=== PATIENT | female | born 1940 | race Caucasian/White ===

== ENCOUNTER 2017-07-18 12:37 | Emergency (ER) | payer MEDICARE ==
[2017-07-18 13:11] LABS: BASOPHILS 0.3 % (0-2); EOSINOPHILS 0.9 % (0-7); HEMATOCRIT 33.5 % (36.0-48.0); HEMOGLOBIN 10.6 g/dL (12-16); IMMATURE GRANULOCYTES 0.1 % (0-5); LYMPHOCYTES 11.3 % (15-50); MCH 29.9 pg (26.0-34.0); MCHC 31.6 g/dL (31.0-37.0); MCV 94.6 fL (80.0-100.0); MEAN PLATELET VOLUME 9.4 fL (7.4-10.4); MONOCYTES 7.8 % (2-11); NEUTROPHILS 79.6 % (40-80); PLATELET COUNT 264 10x3/uL (130-400); RBC 3.54 10x6/uL (4.00-5.40); RDW 13.4 % (11.5-14.5); WBC 6.7 10x3/uL (4.8-10.8)
[2017-07-18 13:19] LABS: ALBUMIN 3.2 g/dL (3.4-5.0); ANION GAP 12.5 mmol/L (8-16); BILIRUBIN - TOTAL 0.27 mg/dL (0.2-1.3); CARBON DIOXIDE 24.2 mmol/L (21.0-32.0); CREATININE - SERUM 0.8 mg/dL (0.6-1.3); POTASSIUM - SERUM 3.7 mmol/L (3.5-5.1); PROTEIN - SERUM 6.2 g/dL (6.4-8.2)
[2017-07-18 17:26] LABS: APPEARANCE HAZY (CLEAR); BILIRUBIN NEGATIVE (NEGATIVE); COLOR YELLOW (YELLOW); GLUCOSE 250 mg/dL (NEGATIVE); KETONE NEGATIVE (NEGATIVE); NITRITE NEGATIVE (NEGATIVE); PROTEIN NEGATIVE (NEGATIVE); SPECIFIC GRAVITY 1.015 (1.005-1.020); UROBILINOGEN NORMAL (NORMAL)
== END 2017-07-18 17:45 | disposition home or self-care (01) ==
LOC: D.ER 12:37
PROVIDERS: Emergency Medicine
DX: R55 Syncope and collapse (principal); E11.65 Type 2 diabetes mellitus with hyperglycemia; I44.0 Atrioventricular block, first degree

== ENCOUNTER 2018-08-03 01:23 | Inpatient (IN) | payer MEDICARE ==
[~2018-08-03] VITALS: Ht 152.4 cm; Wt 46.3 kg
[2018-08-03] MEDS ORDERED: RISPERDAL1 MG PO (01:35)
[2018-08-03] MEDS ORDERED: GLUCOPHAGE500 MG PO (01:35)
[2018-08-03] MEDS ORDERED: PRAVACHOL40 MG PO (01:35)
[2018-08-03] MEDS ORDERED: ZOLOFT50 MG PO (01:35)
[2018-08-03] MEDS ORDERED: ATIVAN2 MG PO (01:35)
[2018-08-03 01:57] LABS: BASOPHILS 0.1 % (0-2); EOSINOPHILS 0.1 % (0-7); HEMOGLOBIN 11.5 g/dL (12-16); IMMATURE GRANULOCYTES 0.2 % (0-5); LYMPHOCYTES 4.4 % (15-50); MCH 31.1 pg (26.0-34.0); MCHC 33.8 g/dL (31.0-37.0); MCV 91.9 fL (80.0-100.0); MEAN PLATELET VOLUME 10.4 fL (7.4-10.4); MONOCYTES 7.6 % (2-11); NEUTROPHILS 87.6 % (40-80); PLATELET COUNT 241 10x3/uL (130-400); RDW 13.4 % (11.5-14.5); WBC 14.8 10x3/uL (4.8-10.8)
[2018-08-03 02:10] LABS: APPEARANCE CLOUDY (CLEAR); BILIRUBIN NEGATIVE (NEGATIVE); COLOR YELLOW (YELLOW); GLUCOSE NEGATIVE (NEGATIVE); KETONE NEGATIVE (NEGATIVE); NITRITE POSITIVE (NEGATIVE); PROTEIN 3+ mg/dL (NEGATIVE); UROBILINOGEN NORMAL (NORMAL)
[2018-08-03 02:11] LABS: BACTERIA MANY /hpf (NONE SEEN); EPITHELIAL CELLS 0-5 /hpf (0-5); RED CELLS - URINE 0-5 /hpf (0-5)
[2018-08-03 02:21] LABS: ALBUMIN 3.4 g/dL (3.4-5.0); ALKALINE PHOSPHATASE 80 U/L (46-116); ALT (SGPT) 15 U/L (10-68); BILIRUBIN - TOTAL 0.48 mg/dL (0.2-1.3); CALC OSMOLALITY 280 mosm/kg (275-300); CALCIUM 8.5 mg/dL (8.5-10.1); CARBON DIOXIDE 22.2 mmol/L (21.0-32.0); CHLORIDE - SERUM 104 mmol/L (98-107); CREATININE - SERUM 0.9 mg/dL (0.6-1.3); GLUCOSE 145 mg/dL (74-106); POTASSIUM - SERUM 3.8 mmol/L (3.5-5.1); PROTEIN - SERUM 6.8 g/dL (6.4-8.2); SODIUM 138 mmol/L (136-145); UREA NITROGEN 17 mg/dL (7-18); eGFR NON AFRICAN AMERICAN 64 mL/min (90-120)
[2018-08-03 02:24] LABS: CKMB 0.6 U/L (0.0-3.6); CREATINE KINASE 46 UL (21-215); TROPONIN-I < 0.017 ng/mL (0.000-0.060)
[2018-08-03 04:00] VITALS: BP 92/46
--- NOTE | 2018-08-03 04:05 | NUR ---
CALLED FOR HEART MONITOR
[2018-08-03] MEDS ORDERED: LOMOTIL 2.5-0.1 EAC1 PO (04:35)
[2018-08-03 04:36] VITALS: BP 80/37; BMI 19.9
--- NOTE | 2018-08-03 05:05 | NUR ---
RECIEVED TO ROOM VIA ED AROUSES EASILY DENIES PAIN IV NS STARTED AT 125CC/HR LEFT AC, DAVID MAT IN PLACE DUE TO REPORTED PEROIDS OF CONFUSION AND FREQUENT FALLS AT HOME PRIOR TO ARRIVAL, CALL LIGHT IN REACH
--- NOTE | 2018-08-03 07:10 | NUR ---
REPORT RECEIEVED FROM VIDEO SPECIALIST. PATIENT LAYING ON RIGHT SIDE WITH EYES CLOSED AND BREATHING EVENLHY. VS GOOD. WILL CONTINUE WITH PLAN OF CARE. SR UP X 2 BED IN LOW POSITION AND CAll light in reach.
[2018-08-03 07:59] VITALS: BP 107/46
--- NOTE | 2018-08-03 08:10 | NUR ---
PATIENT AWAKE AND ALERT X 2. PATIENT HOB ELEVATED FOR BREAKFAST. IV TO RT AC PATENT WITH NS @ 125ML/HR. MEDS GIVEN PER MAR ORDER. VS GOOD. PATIENT DENIES ANY NEEDS OR PAIN. WILL CONTINUE TO MONITOR. SR UP X 2 BED IN LOW POSTION AND CALL LIGHT IN REACH.
--- NOTE | 2018-08-03 11:00 | NUR ---
PATIENT LAYING ON RT SIDE WITH EYES CLOSED AND BREATHING EVENLY. PATIENT REPOSITIONED TO LEFT SIDE FOR COMFORT. PATIENT DENIES ANY PAIN OR NEEDS.HOME CAREGIVER AT BEDSIDE. WILL CONTINUE TO MONITOR.
[2018-08-03 11:25] VITALS: BP 137/66
[2018-08-03 11:59] LABS: % SATURATION 3 % (15-55); IRON 12 ug/dl (35-150); TOTAL IRON BIND CAPACITY 303 ug/dl (260-445); UNSAT IRON BIND CAPACITY 291 ug/dl (150-375)
--- NOTE | 2018-08-03 12:00 | NUR ---
IN AND OUT CATH DONE USING ASEPTIC TECHNIQUE PER REQUEST FROM FABY GRIJALVA. STERILE URINE SPECIMEN OBTAINED FOR CULTURE. PT TOLERATED WELL AND PLACED INTO RIGHT LATERAL POSITION PER REQUEST. DENIES FURTHER NEEDS
[2018-08-03 15:14] VITALS: Ht 152.4 cm; Wt 46.3 kg
[2018-08-03 15:16] VITALS: BP 109/51
--- NOTE | 2018-08-03 15:25 | NUR ---
PATIENT LAYING IN BED WITH EYES CLOSED AND BREATHING EVENLY. PATIENT AROUSES EASILY TO VOICE AND VSS. WILL CONTINUE TO MONITOR.
--- NOTE | 2018-08-03 19:55 | NUR ---
INITIAL ASSESSMENT COMPLETED - PT LETHARGIC AND ORIENTED X2. LAYING IN BED IN POSITION. INTERACTED WITH PT AND PT SEEMS WITHDRAWN. RR EVEN AND UL ON 2L OF O2 VIA NC. HR 68 SR PER CUTTER OUT. R AC PIV INFUSING NS AT 125 ML/HR. PIV PATENT, C/D/I. ORIENTED THIS NURSE TO PT. PT VERBALIZED UNDERSTANDING. DENIES AND NEEDS OR PAIN AT THIS TIME. CL IN REACH, SR UP X2, BED IN LOWEST POSITION, BED ALARM ON, FALL PRECAUTIONS IN PLACE. WCTM AND FOLLOW POC.
[2018-08-03 20:30] VITALS: BP 90/45
--- NOTE | 2018-08-04 00:26 | NUR ---
TO PT ROOM VIA BREAD ROOM HAND. BREAD ROOM HAND REPORTS TEMP OF 100.6. ADMINISTERED TYLENOL PRN FOR FEVER. NO C/O PAIN OR DISCOMFORT AT THIS TIME. PT HAD INCONTINENCE EPISODE. COMPLETE LINEN CHANGE COMPLETED AND APPLIED BARRIER CREAM TO BOTTOM. NO OTHER NEEDS NOTED AT THIS TIME. PIV INFUSING AT 125 ML/HR. CL IN REACH, SR UP X3, BED IN LOWEST POSITION, BED ALARM ON AND FALL PRECAUTIONS IN PLACE.
[2018-08-04 00:30] VITALS: BP 100/47
--- NOTE | 2018-08-04 03:25 | NUR ---
TO PT ROOM VIA PM MEDS. PT HAD ANOTHER INCONTINENT EPISODE. PERFORMED LINEN CHANGE AND CLEANED PT. NO OTHER NEEDS AT THIS TIME. CL IN REACH, SR UP X3, BED IN LOWEST POSITION, BED ALARM ON.
[2018-08-04 05:29] VITALS: BP 94/63
[2018-08-04 06:08] LABS: BASOPHILS 0.1 % (0-2); EOSINOPHILS 0.4 % (0-7); HEMATOCRIT 30.2 % (36.0-48.0); HEMOGLOBIN 9.7 g/dL (12-16); IMMATURE GRANULOCYTES 0.4 % (0-5); LYMPHOCYTES 8.1 % (15-50); MCH 29.8 pg (26.0-34.0); MCHC 32.1 g/dL (31.0-37.0); MCV 92.6 fL (80.0-100.0); MEAN PLATELET VOLUME 10.9 fL (7.4-10.4); MONOCYTES 8.9 % (2-11); NEUTROPHILS 82.1 % (40-80); PLATELET COUNT 205 10x3/uL (130-400); RBC 3.26 10x6/uL (4.00-5.40); RDW 13.6 % (11.5-14.5)
[2018-08-04 06:19] LABS: ANION GAP 13.7 mmol/L (8-16); CALCIUM 8.2 mg/dL (8.5-10.1); CARBON DIOXIDE 22.1 mmol/L (21.0-32.0); CREATININE - SERUM 0.9 mg/dL (0.6-1.3); POTASSIUM - SERUM 3.8 mmol/L (3.5-5.1)
--- NOTE | 2018-08-04 07:47 | NUR ---
ROUNDING DONE WITH PATIENT LAYING ON RIGHT SIDE, ON 2L PER NC BUT THIS IS OFF AT PRESENT TIME. PLACED BACK ON HER. ON HEART MONITOR SHOWING SR, HR 71. RIGHT AC PIV SEEN WITH NS INFUSING AT 125 CC/HR. ON EP, WILL MONITOR FOR AM LABS. IN REPORT, PATIENT IS INCONT. DAVID MAT ALARM ON AND IN USE.
[2018-08-04 07:53] VITALS: BP 94/48
--- NOTE | 2018-08-04 11:36 | NUR ---
COMPLETE BED BATH AND LINEN CHANGE DONE.
[2018-08-04 12:23] VITALS: BP 138/65
--- NOTE | 2018-08-04 14:33 | NUR ---
CALLED TO ROOM WITH NEEDING TO BE PLACED ON BEDPAN. VOIDS EASILY.
[2018-08-04 14:47] VITALS: BP 122/66
--- NOTE | 2018-08-04 17:36 | NUR ---
SITTING UP IN BED EATING BBQ AND CARROTS. DENIES NEEDS AT THIS TIME.
--- NOTE | 2018-08-04 18:31 | NUR ---
CHANGED COMPLETE BED LINENS AND GOWN FOR INCONT. OF URINE. DAVID MAT ALARM ON.
[2018-08-04 20:00] VITALS: BP 120/64
--- NOTE | 2018-08-04 20:22 | NUR ---
TO PT ROOM VIA BED ALARM - PT WALKING TO BATHROOM, ASSISTED PT TO SIT IN THE BATHROOM. COMPLETED LINEN CHANGE PT HAD INCONTINENT EPISODE. PT BACK IN BED, DENIES ANY OTHER NEEDS AT THIS TIME. BED ALARM ON, CL IN REACH, SR UP X2, BED IN LOWEST POSITION. EDUCATED PT TO CALL AND ASK FOR HELP, PT VERBALIZED UNDERSTANDING.
[2018-08-05] VITALS: BP 118/55
[2018-08-05 04:50] VITALS: BP 128/68
--- NOTE | 2018-08-05 06:49 | NUR ---
PT HAS IS ELECTROLYTE PROTOCOL AND HAS NO AM LABS ORDERED FOR TODAY. ORDERED BMP PER PROTOCOL.
--- NOTE | 2018-08-05 07:27 | NUR ---
ROUNDING DONE WITH PAITNET LAYING ON RIGHT SIDE, DAVID MAT ALARM IS ON. ON 2L PER NC. ON HEART MONITOR SHOWING SR, HR 75. RIGHT AC PIV SEEN WITH NS INFUSING AT 100 CC/HR. ON EP, NO LAB SEEN YET. ORDERED PER LOADER ENGINEER.
--- NOTE | 2018-08-05 07:48 | NUR ---
IV SEEN TO RIGHT AC IS LEAKING AT SHIFT CHANGE. THERE WAS A SOAKED TOWEL UNDER HER ELBOW. THIS ONE IS REMOVED WITH CATH TIP INTACT AND NEW 22 G RE-SITED TO RIGHT WRIST/FA AREA WITH 1 STICK PER THIS NURSE.
--- NOTE | 2018-08-05 08:10 | NUR ---
PATIENT CHANGED FROM INCONT. OF URINE. PATIENT HAD A DEPENDS ON, THIS IS REMOVED AND NOT REPLACED.
[2018-08-05 08:14] VITALS: BP 143/77
[2018-08-05 12:09] VITALS: BP 115/62
[2018-08-05 12:14] LABS: CALC OSMOLALITY 283 mosm/kg (275-300); CALCIUM 7.4 mg/dL (8.5-10.1); CARBON DIOXIDE 22.4 mmol/L (21.0-32.0); CHLORIDE - SERUM 111 mmol/L (98-107); CREATININE - SERUM 0.7 mg/dL (0.6-1.3); GLUCOSE 103 mg/dL (74-106); POTASSIUM - SERUM 3.9 mmol/L (3.5-5.1); SODIUM 142 mmol/L (136-145); UREA NITROGEN 14 mg/dL (7-18); eGFR NON AFRICAN AMERICAN 86 mL/min (90-120)
[2018-08-05 15:02] VITALS: BP 106/60
--- NOTE | 2018-08-05 19:05 | NUR ---
BEDSIDE REPORT RECEIVED. PT IS LAYING ON RIGHT SIDE. AROUSES TO VERBAL STIMULI. 2L O2 NC. NS INFUSING ORDERED. NAME AND DATE PLACED ON BOARD. BEDLOW AND CALL LIGHT IN REACH. DAVID ALARM ON AND ACTIVE. WILL CPOC
[2018-08-05 20:00] VITALS: BP 124/60
--- NOTE | 2018-08-05 22:10 | NUR ---
NO INSULIN NEEDED FOR FSBS OF 102, PT LAYING ON LEFT SIDE. DENIES ANY NEEDS. NO S/S OF DISTRESS. WILL CPOC
--- NOTE | 2018-08-05 23:35 | NUR ---
CHANGED PT GOWN. PT REPOSTIONED. NO S/S OF DISTRESS. PT DENIES ANY NEEDS. WILL CPOC
[2018-08-06] VITALS: BP 124/58
--- NOTE | 2018-08-06 02:22 | NUR ---
PT REPOSTIONED. ROCEPHIN HUNG AND INFUSING. PT HAS NO S/S OF DISTRESS. RESP EVEN AND UNLABORED BEDLOW AND CALL LIGHT INREACH. WILL CPOC
[2018-08-06 04:30] VITALS: BP 111/53
--- NOTE | 2018-08-06 07:25 | NUR ---
RECEIVED BEDSIDE SHIFT REPORT. ASSUMED CARE OF PATIENT. PATIENT RESTING WITH EYES CLOSED ON RIGHT LATERAL SIDE. SR UP FOR SAFETY, BED IN LOWEST POSITION. DAVID MAT UTILIZED FOR PATIENT. CALL LIGHT WITHIN REACH. IV FLUIDS INFUSING ORDERED. SR ON TELEMETRY. NO DISTRESS. RESP EVEN AND UNLABORED.
[2018-08-06 08:35] VITALS: BP 117/61
--- NOTE | 2018-08-06 09:34 | NUR ---
PATIENT OOB TO CHAIR AT BEDSIDE.
--- NOTE | 2018-08-06 09:56 | NUR ---
PT IN WORKING WITH PATIENT AT THIS TIME.
[2018-08-06] MEDS ORDERED: LEVAQUIN750 MG PO (11:24)
--- NOTE | 2018-08-06 11:49 | NUR ---
FSBS 93. NO INSULIN COVERAGE REQUIRED.
[2018-08-06 11:54] VITALS: BP 105/53
--- NOTE | 2018-08-06 14:52 | NUR ---
[facility] CLOSED FOR TODAY AND DOES NOT REOPEN UNTIL WEDNESDAY. PATIENT CAN NOT GO WITHOUT ABT UNTIL WEDNESDAY. LEVAQUIN 750MG PO DAILY X 7 DAYS CALLED TO PHARMACIST RADHA [facility] ON [address].
--- NOTE | 2018-08-06 14:54 | NUR ---
1430 DISCHARGE INSTRUCTIONS PROVIDED TO PATIENT AND HER FAMILY THAT CARES FOR HER AT HOME. FAMILY VERBALIZED UNDERSTANDING OF ALL INSTRUCTIONS PROVIDED. 1435 20 GAUGE IV REMOVED FROM RIGHT FOREARM. CATHETER TIP INTACT. NO BLEEDING FROM SITE. 2X2 GAUZE APPLIED AND SECURED WITH BANDAID. TOLERATED REMOVAL OF IV WELL. TELEMETRY REMOVED 1452 PATIENT LEFT UNIT VIA WHEELCHAIR. PATIENT LEFT UNIT IN NO DISTRESS. ALL PERSONAL BELONGINGS TAKEN DOWNSTAIRS TO CAR BY FAMILY. PATIENT LEFT UNIT IN NO ACUTE DISTRESS. PATIENT PRESCRIPTION FOR LEVAQUIN CALLED TO [facility] ON DUE TO [facility] IN [place] ALREADY CLOSED FOR THE DAY AND WILL NOT REOPEN UNITL WEDNESDAY. SPOKE WITH RADHA THE PHARMACIST AT [facility].
--- NOTE | 2018-08-08 08:38 | MORECARE ---
CASE MANAGEMENT DISCHARGE SUMMARY PATIENT: JOY BARTH UNIT: [id number] ADM DATE: 08/03/18 AGE: 78 : 40 SEX: F ROOM/BED: D.2113 AUTHOR: DIANA PEREZ PHYSICIAN: REFERRING PHYSICIAN: FAUZIA GODOY MD DATE OF SERVICE: 08/08/18 Discharge Plan Patient Name: JOY BARTH [facility] [facility] 1940 Planned Disposition: Home Anticipated Discharge Date: 08/06/18 Discharge Date: 08/06/2018 Expected LOS: 3 Initial Reviewer: [email or web address] Initial Review Date: 08/08/2018 Generated: 08/08/18 9:38 am Patient Name: JOY BARTH Page [id number] at 0838 All edits/amendments must be made on the electronic document DICTATION DATE: 08/08/18 0837 GATE TECHNICIAN: PRADEEP 08/08/18 0837 RPT#: [id number] DC DATE:08/06/18 STATUS: DIS IN [facility] [address] [place] [id number] END OF REPORT
== END 2018-08-06 14:57 | disposition home or self-care (01) | DRG 690 ==
LOC: D.ER 01:23 → D.M2 02:58 → D.M3 02:58 → D.M2 04:29
PROVIDERS: Family Medicine; ADMIT Internal Medicine Nephrology; ATTEND Internal Medicine Nephrology
DX: N39.0 Urinary tract infection, site not specified (principal); D50.9 Iron deficiency anemia, unspecified; W18.30XA Fall on same level, unspecified, initial encounter; E78.5 Hyperlipidemia, unspecified; E11.9 Type 2 diabetes mellitus without complications; K52.9 Noninfective gastroenteritis and colitis, unspecified; B96.1 Klebsiella pneumoniae [K. pneumoniae] as the cause of diseases classified elsewhere; M25.551 Pain in right hip; M25.561 Pain in right knee; F03.90 Unspecified dementia, unspecified severity, without behavioral disturbance, psychotic disturbance, mood disturbance, and anxiety; Z91.81 History of falling

== ENCOUNTER 2020-10-09 09:59 | Emergency (ER) | payer SELFPAY ==
[2018-08-03 15:14] VITALS: Ht 152.4 cm; Wt 49.1 kg
[~2020-10-09] VITALS: Ht 152.4 cm; Wt 49.1 kg
[~2020-10-09 09:59] MED LIST: ATIVAN2 MG PO; GLUCOPHAGE500 MG PO; LEVAQUIN750 MG PO; LOMOTIL 2.5-0.1 EAC1 PO; PRAVACHOL40 MG PO; RISPERDAL1 MG PO; ZOLOFT50 MG PO
[2020-10-09 10:59] LABS: BASOPHILS 0.6 % (0-2); EOSINOPHILS 3.1 % (0-7); HEMATOCRIT 36.2 % (36.0-48.0); HEMOGLOBIN 11.9 g/dL (12-16); IMMATURE GRANULOCYTES 0.1 % (0-5); LYMPHOCYTE ABS# 1.32 10x3/uL (1.18-3.74); LYMPHOCYTES 19.6 % (15-50); MCH 30.4 pg (26.0-34.0); MCHC 32.9 g/dL (31.0-37.0); MCV 92.6 fL (80.0-100.0); MEAN PLATELET VOLUME 10.5 fL (7.4-10.4); MONOCYTES 10.5 % (2-11); NEUTROPHIL ABS# 4.44 10x3/uL (1.56-6.13); NEUTROPHILS 66.1 % (40-80); RBC 3.91 10x6/uL (4.00-5.40); RDW 13.2 % (11.5-14.5); WBC 6.7 10x3/uL (4.8-10.8)
[2020-10-09 11:03] LABS: PLATELET COUNT 282 10x3/uL (130-400)
[2020-10-09 11:14] LABS: CALC OSMOLALITY 284 mosm/kg (275-300); CALCIUM 9.4 mg/dL (8.5-10.1); CARBON DIOXIDE 24.2 mmol/L (21.0-32.0); CHLORIDE - SERUM 108 mmol/L (98-107); CREATININE - SERUM 0.7 mg/dL (0.6-1.3); GLUCOSE 95 mg/dL (74-106); POTASSIUM - SERUM 4.3 mmol/L (3.5-5.1); SODIUM 142 mmol/L (136-145); UREA NITROGEN 18 mg/dL (7-18); eGFR NON AFRICAN AMERICAN 85 mL/min (90-120)
[2020-10-09 11:19] LABS: ALBUMIN 3.3 g/dL (3.4-5.0); ALKALINE PHOSPHATASE 89 U/L (30-120); ALT (SGPT) 17 U/L (10-68); BILIRUBIN - TOTAL 0.38 mg/dL (0.2-1.3); PROTEIN - SERUM 6.6 g/dL (6.4-8.2)
[2020-10-09] MEDS ORDERED: NEURONTIN 300300 MG PO (11:37)
[2020-10-09 12:02] VITALS: BP 130/80
== END 2020-10-09 12:15 | disposition home or self-care (01) ==
LOC: D.ER 09:59
PROVIDERS: Emergency Medicine
DX: E11.40 Type 2 diabetes mellitus with diabetic neuropathy, unspecified (principal); Z79.84 Long term (current) use of oral hypoglycemic drugs; R20.0 Anesthesia of skin

== ENCOUNTER 2020-10-19 15:22 | Inpatient (IN) | payer MEDICARE ==
[~2020-10-19] VITALS: Ht 152.4 cm; Wt 46.6 kg
[~2020-10-19 15:22] MED LIST changes: +NEURONTIN 300300 MG PO
[2020-10-19 16:30] LABS: BASOPHILS 0.1 % (0-2); EOSINOPHILS 0 % (0-7); HEMATOCRIT 38.3 % (36.0-48.0); HEMOGLOBIN 12.5 g/dL (12-16); IMMATURE GRANULOCYTES 0.5 % (0-5); LYMPHOCYTE ABS# 0.83 10x3/uL (1.18-3.74); LYMPHOCYTES 4.3 % (15-50); MCH 30.1 pg (26.0-34.0); MCHC 32.6 g/dL (31.0-37.0); MCV 92.3 fL (80.0-100.0); MEAN PLATELET VOLUME 10.4 fL (7.4-10.4); MONOCYTES 10.2 % (2-11); NEUTROPHIL ABS# 16.38 10x3/uL (1.56-6.13); NEUTROPHILS 84.9 % (40-80); PLATELET COUNT 262 10x3/uL (130-400); RBC 4.15 10x6/uL (4.00-5.40); RDW 13.3 % (11.5-14.5); WBC 19.3 10x3/uL (4.8-10.8)
[2020-10-19 16:44] LABS: INR 1.24 (0.85-1.17); PROTIME 14.5 SECONDS (11.6-15.0)
[2020-10-19 16:50] LABS: CALC OSMOLALITY 280 mosm/kg (275-300); CALCIUM 8.8 mg/dL (8.5-10.1); CARBON DIOXIDE 25.6 mmol/L (21.0-32.0); CHLORIDE - SERUM 102 mmol/L (98-107); CREATININE - SERUM 0.9 mg/dL (0.6-1.3); POTASSIUM - SERUM 3.6 mmol/L (3.5-5.1); SODIUM 139 mmol/L (136-145); UREA NITROGEN 15 mg/dL (7-18); eGFR NON AFRICAN AMERICAN 64 mL/min (90-120)
[2020-10-19 16:51] LABS: GLUCOSE 143 mg/dL (74-106)
[2020-10-19 17:18] LABS: ALBUMIN 3.3 g/dL (3.4-5.0); ALKALINE PHOSPHATASE 85 U/L (30-120); ALT (SGPT) 17 U/L (10-68); BILIRUBIN - TOTAL 0.62 mg/dL (0.2-1.3); CKMB 3.6 U/L (0.0-3.6); CREATINE KINASE 666 UL (21-215); PROTEIN - SERUM 7.5 g/dL (6.4-8.2)
[2020-10-19 17:19] LABS: TROPONIN-I < 0.017 ng/mL (0.000-0.060)
[2020-10-19 17:23] LABS: BACTERIA MANY HPF (NONE SEEN); BILIRUBIN NEGATIVE (NEGATIVE); KETONE NEGATIVE (NEGATIVE); NITRITE NEGATIVE (NEGATIVE); SQUAMOUS EPITHELIAL NONE SEEN HPF (0-4); UROBILINOGEN NORMAL mg/dL (< 2); WHITE CELLS - URINE 0-5 HPF (0-4)
--- NOTE | 2020-10-19 20:13 | NUR ---
PT FROM ER, FAMILY AT BEDSIDE, PT MOVED TO BED, RESP EVEN AND UNLABORED, NO DISTRESS NOTED, CL IN REACH, SR UP X 2.
[2020-10-19 21:00] VITALS: BP 98/56
[2020-10-20] VITALS (8 sets, daily range): BP systolic 87–135; BP diastolic 42–55; Ht 152.4 cm; Wt 46.6 kg
[2020-10-20 01:50] LABS: CKMB 3.1 U/L (0.0-3.6); CREATINE KINASE 643 UL (21-215)
[2020-10-20 01:54] LABS: TROPONIN-I < 0.017 ng/mL (0.000-0.060)
[2020-10-20 06:25] LABS: BASOPHILS 0.2 % (0-2); EOSINOPHILS 0.2 % (0-7); HEMATOCRIT 34.4 % (36.0-48.0); HEMOGLOBIN 11.1 g/dL (12-16); IMMATURE GRANULOCYTES 0.2 % (0-5); LYMPHOCYTE ABS# 0.74 10x3/uL (1.18-3.74); LYMPHOCYTES 5.9 % (15-50); MCH 30.1 pg (26.0-34.0); MCHC 32.3 g/dL (31.0-37.0); MCV 93.2 fL (80.0-100.0); MEAN PLATELET VOLUME 10.7 fL (7.4-10.4); MONOCYTES 9.3 % (2-11); NEUTROPHIL ABS# 10.54 10x3/uL (1.56-6.13); NEUTROPHILS 84.2 % (40-80); PLATELET COUNT 245 10x3/uL (130-400); RBC 3.69 10x6/uL (4.00-5.40); RDW 13.4 % (11.5-14.5)
[2020-10-20 06:26] LABS: WBC 12.5 10x3/uL (4.8-10.8)
[2020-10-20 06:55] LABS: ALBUMIN 2.6 g/dL (3.4-5.0); ANION GAP 12.3 mmol/L (8-16); BILIRUBIN - TOTAL 0.52 mg/dL (0.2-1.3); CARBON DIOXIDE 24.5 mmol/L (21.0-32.0); CREATININE - SERUM 0.9 mg/dL (0.6-1.3); MAGNESIUM - SERUM 2.2 mg/dL (1.8-2.4); PHOSPHOROUS 2.3 mg/dL (2.5-4.9); POTASSIUM - SERUM 3.8 mmol/L (3.5-5.1); PROTEIN - SERUM 6.4 g/dL (6.4-8.2); THYROID STIMULATING HORMONE 1.02 uIU/mL (0.36-3.74)
--- NOTE | 2020-10-20 07:20 | NUR ---
RECIEVE REPORT. ALERT AND ORIENTED X4. SITTING UP IN BED WATCHING TV. DENIES ANY NEEDS. NO SIGNS OF DISTRESS. CONTINUE PLAN OF CARE AND SAFETY PRECAUTIONS.
[2020-10-20 08:20] LABS: CKMB 2.8 U/L (0.0-3.6); CREATINE KINASE 716 UL (21-215)
[2020-10-20 08:24] LABS: TROPONIN-I < 0.017 ng/mL (0.000-0.060)
--- NOTE | 2020-10-20 19:47 | NUR ---
[place] [address] HRS. PT RESTING WITH EYES CLOSED. RESP EVEN AND REGULAR. ASSESSMETN COMPLETED AT 1930 HRS. VSS. SR PER CM HR 81. ALERT AND ORIENTED. PT [place]. IV TO L WRIS TWITH NS AT 50CC/HR. IV PATENT. LUNGS DIMINISHED IN BASES BILAT. PALAPBLE PERIPHERAL PULSES. PT INCONTINETN OF URINE. INCONTINENT CAREDONE. GROIN AREA SLIGHTLY RED. SR UP X3,CALL LIGHT WITHIN REACH.
--- NOTE | 2020-10-20 22:29 | NUR ---
SR PER CM HR 80. PT RESTING WITH EYES CLOSED. RESP EVEN AND REGULAR. SR UP X3,CALL LIGHT WITHIN REACH.
--- NOTE | 2020-10-21 02:49 | NUR ---
PT RESTING WITH EYES CLOSED. RESP EVEN AND REGULAR. SR UP X3,CALL LIGHT WITHIN REACH.
[2020-10-21 04:07] VITALS: BP 99/54
--- NOTE | 2020-10-21 04:15 | NUR ---
PT RESTING WITH EYES CLOSED. RESP EVEN AND REGULAR. SR UP X3,CALL LIGHT WITHIN REACH.
[2020-10-21 05:25] VITALS: BP 99/54
--- NOTE | 2020-10-21 06:10 | NUR ---
VSS THROUGHOUT NIGHT. SR PER CM. PT RESTED WELL DURING SHIFT. NEEDS MET; WILL CONTINUE TO MONITOR.
[2020-10-21 06:26] LABS: BASOPHILS 0.3 % (0-2); EOSINOPHILS 1.7 % (0-7); HEMATOCRIT 31.4 % (36.0-48.0); IMMATURE GRANULOCYTES 0.1 % (0-5); LYMPHOCYTE ABS# 1.31 10x3/uL (1.18-3.74); LYMPHOCYTES 14.8 % (15-50); MCH 29.5 pg (26.0-34.0); MCHC 31.8 g/dL (31.0-37.0); MCV 92.6 fL (80.0-100.0); MEAN PLATELET VOLUME 10.6 fL (7.4-10.4); MONOCYTES 14.8 % (2-11); NEUTROPHIL ABS# 6.07 10x3/uL (1.56-6.13); NEUTROPHILS 68.3 % (40-80); PLATELET COUNT 245 10x3/uL (130-400); RBC 3.39 10x6/uL (4.00-5.40); RDW 13.1 % (11.5-14.5)
[2020-10-21 06:35] LABS: WBC 8.9 10x3/uL (4.8-10.8)
[2020-10-21 06:38] LABS: ALBUMIN 2.3 g/dL (3.4-5.0); ANION GAP 13.8 mmol/L (8-16); BILIRUBIN - TOTAL 0.43 mg/dL (0.2-1.3); CARBON DIOXIDE 22.7 mmol/L (21.0-32.0); CREATININE - SERUM 0.8 mg/dL (0.6-1.3); MAGNESIUM - SERUM 2.5 mg/dL (1.8-2.4); POTASSIUM - SERUM 3.5 mmol/L (3.5-5.1); PROTEIN - SERUM 5.8 g/dL (6.4-8.2)
[2020-10-21 08:42] VITALS: BP 107/53
[2020-10-21] MEDS ORDERED: CIPRO500 MG PO (10:49)
--- NOTE | 2020-10-21 15:24 | NUR ---
PATIENT ABLE TO GET UP TO BEDSIDE AND STAND WITH CGA. PATIENT WALKED IN ONEIL WITH MIN ASST WHILE PUSHING THE IV POLE FOR 60 FEET. SAT IN CHAIR AFTER WALK.
--- NOTE | 2020-10-21 17:08 | NUR ---
PATIENT RIDE HERE. DISCHARGE INSTRUCTIONS GIVEN VERBALLY AND HANDOUTS PROVIDED.
--- NOTE | 2020-10-21 17:20 | NUR ---
TAKEN DOWN VIA WHEELCHAIR. REMAINS FREE FROM INJURY.
== END 2020-10-21 17:21 | disposition home or self-care (01) | DRG 690 ==
LOC: D.ER 15:22 → D.M2 17:59
PROVIDERS: Family Medicine; ADMIT Emergency Medicine; ATTEND Emergency Medicine
DX: N39.0 Urinary tract infection, site not specified (principal); W19.XXXA Unspecified fall, initial encounter; F31.9 Bipolar disorder, unspecified; E11.9 Type 2 diabetes mellitus without complications; M81.0 Age-related osteoporosis without current pathological fracture